=== PATIENT | female | born 1960 | race Caucasian/White ===

== ENCOUNTER 2017-03-31 19:45 | Inpatient (IN) | payer MEDICARE ==
[~2017-03-31] VITALS: Ht 142.2 cm; Wt 54.2 kg
[2017-03-31] MEDS ORDERED: ALBUTEROL/IPRATROPIUM 2.5MG/0.5MG, 3 ML NPPB SCH (20:30)
[2017-03-31] MEDS ORDERED: ASPIRIN 81 MG TABLET CHEW PO ONE (20:30)
[2017-03-31] MEDS ORDERED: SODIUM CHLORIDE FLUSH 10ML SYR IVF ONE (20:30)
[2017-03-31 20:39] LABS: HEMATOCRIT 50.1 % (34.6-47.8); HEMOGLOBIN 16.7 g/dL (11.7-16.4); WHITE BLOOD COUNT 11.4 x10^3/uL (3.4-10)
[2017-03-31 20:58] LABS: BLOOD UREA NITROGEN 14 mg/dL (7-18)
[2017-03-31] MEDS ORDERED: ASPIRIN 81 MG TABLET CHEW ONE (21:02)
[2017-03-31 21:03] LABS: IS PT STATUS REG ER OR PRE ER? YES
[2017-03-31] MEDS ORDERED: CEFTRIAXONE PMX 1GM/50ML 50 ML IVPB ONE (22:00)
[2017-03-31] MEDS ORDERED: ALBUTEROL/IPRATROPIUM 2.5MG/0.5MG, 3 ML NPPB ONE (22:00)
[2017-03-31] MEDS ORDERED: AZITHROMYCIN 500 MG in SODIUM CHLORIDE 0.9% 250 ML IVPB ONE (22:00)
[2017-03-31] MEDS ORDERED: methylPREDNISolone SOD SUCC 125 MG/2 ML IVPush SCH (22:30)
[2017-03-31] MEDS ORDERED: CEFTRIAXONE PMX 1GM/50ML 50 ML ONE (22:43)
[2017-03-31] MEDS ORDERED: BUDE10.2 INH (23:33)
[2017-03-31] MEDS ORDERED: METH500T7 PO (23:33)
[2017-03-31] MEDS ORDERED: MECL-76 PO (23:33)
[2017-03-31] MEDS ORDERED: GABA300C10 PO (23:33)
[2017-03-31] MEDS ORDERED: ESOM20CA PO (23:33)
[2017-03-31] MEDS ORDERED: TIOT18CA INH (23:33)
[2017-03-31] MEDS ORDERED: ALBU0.63 NEB (23:33)
[2017-04-01] MEDS ORDERED: ONDANSETRON 2MG/ML, 2ML IVPush ONE (00:30)
[2017-04-01] MEDS ORDERED: MORPHINE SULFATE 4 MG/ML, 1ML IVPush ONE (00:30)
[2017-04-01] MEDS ORDERED: MORPHINE SULFATE 4 MG/ML, 1ML ONE (00:31)
[2017-04-01] MEDS ORDERED: ACETAMINOPHEN 325 MG TABLET PO PRN (01:00)
[2017-04-01] MEDS ORDERED: ONDANSETRON ODT 4 MG PO PRN (01:00)
[2017-04-01] MEDS ORDERED: DOCUSATE 100 MG CAPSULE PO PRN (01:00)
[2017-04-01] MEDS ORDERED: POLYETHYLENE GLYCOL 17 GM PACKET PO PRN (01:00)
[2017-04-01] MEDS ORDERED: BISACODYL 10 MG SUPP PR PRN (01:00)
[2017-04-01] MEDS: methylPREDNISolone SOD SUCC 125 MG/2 ML IVPush SCH ×4 (03:06→20:35)
[2017-04-01] MEDS: ENOXAPARIN 40 MG/0.4 ML SQ SCH (03:07)
[2017-04-01] MEDS: NICOTINE 7 MG/24 HR PATCH.TD24 TD PRN (03:14)
[2017-04-01 03:23] VITALS: BP 108/73
[2017-04-01 05:42] LABS: HEMATOCRIT 47.1 % (34.6-47.8); HEMOGLOBIN 15.8 g/dL (11.7-16.4); WHITE BLOOD COUNT 10.6 x10^3/uL (3.4-10)
[2017-04-01 05:53] LABS: BLOOD UREA NITROGEN 13 mg/dL (7-18)
[2017-04-01 05:57] LABS: ASPARTATE AMINO TRANSFERASE 16 U/L (15-37)
[2017-04-01 06:03] LABS: IS PT STATUS REG ER OR PRE ER? NO
[2017-04-01] MEDS: ALBUTEROL/IPRATROPIUM 2.5MG/0.5MG, 3 ML NPPB SCH ×4 (06:49→19:38)
[2017-04-01 07:29] VITALS: BP 106/69
[2017-04-01] MEDS: FAMOTIDINE 20 MG TABLET PO SCH ×2 (09:03→20:35)
[2017-04-01] MEDS: GUAIFENESIN 200 MG TABLET PO SCH ×2 (13:38→20:35)
[2017-04-01] MEDS: FLUTICASONE/VILANTEROL 200-25MCG/INH INH SCH (13:38)
[2017-04-01 15:03] VITALS: BP 116/76
[2017-04-01 19:08] VITALS: BP 121/72
[2017-04-01] MEDS: AZITHROMYCIN 500 MG in SODIUM CHLORIDE 0.9% 250 ML IV SCH (20:36)
[2017-04-01] MEDS: CEFTRIAXONE PMX 1GM/50ML 50 ML IV SCH (22:00)
[2017-04-02] MEDS: ENOXAPARIN 40 MG/0.4 ML SQ SCH (01:00)
[2017-04-02 01:09] VITALS: BP 127/76
[2017-04-02] MEDS: methylPREDNISolone SOD SUCC 125 MG/2 ML IVPush SCH ×4 (03:53→19:15)
[2017-04-02 05:34] LABS: HEMATOCRIT 43.6 % (34.6-47.8); HEMOGLOBIN 14.6 g/dL (11.7-16.4); WHITE BLOOD COUNT 15.3 x10^3/uL (3.4-10)
[2017-04-02 05:44] LABS: BLOOD UREA NITROGEN 14 mg/dL (7-18)
[2017-04-02] MEDS: ALBUTEROL/IPRATROPIUM 2.5MG/0.5MG, 3 ML NPPB SCH ×4 (07:06→20:00)
[2017-04-02] MEDS: FAMOTIDINE 20 MG TABLET PO SCH ×2 (09:09→20:54)
[2017-04-02] MEDS: GUAIFENESIN 200 MG TABLET PO SCH ×2 (09:10→20:55)
[2017-04-02] MEDS: FLUTICASONE/VILANTEROL 200-25MCG/INH INH SCH (11:52)
[2017-04-02] MEDS: NICOTINE 7 MG/24 HR PATCH.TD24 TD PRN (13:23)
[2017-04-02 14:27] VITALS: BP 121/71
[2017-04-02 18:41] VITALS: BP 127/72
[2017-04-02] MEDS: AZITHROMYCIN 500 MG in SODIUM CHLORIDE 0.9% 250 ML IV SCH (19:43)
[2017-04-02] MEDS: CEFTRIAXONE PMX 1GM/50ML 50 ML IV SCH (20:55)
[2017-04-03 01:11] VITALS: BP 115/72
[2017-04-03] MEDS: methylPREDNISolone SOD SUCC 125 MG/2 ML IVPush SCH ×4 (01:20→18:36)
[2017-04-03] MEDS: ENOXAPARIN 40 MG/0.4 ML SQ SCH (01:20)
[2017-04-03 03:53] VITALS: BP_SYST 116; BP_SYST 125; BP_DIAS 75; BP_DIAS 77
[2017-04-03] MEDS: ALBUTEROL/IPRATROPIUM 2.5MG/0.5MG, 3 ML NPPB SCH ×4 (07:34→20:30)
[2017-04-03 08:35] VITALS: BP 123/72
[2017-04-03] MEDS: FLUTICASONE/VILANTEROL 200-25MCG/INH INH SCH (09:43)
[2017-04-03] MEDS: GUAIFENESIN 200 MG TABLET PO SCH ×2 (09:43→21:47)
[2017-04-03] MEDS: FAMOTIDINE 20 MG TABLET PO SCH ×2 (09:43→21:47)
[2017-04-03] MEDS: NICOTINE 21 MG/24 HR PATCH.TD24 TD SCH (12:36)
[2017-04-03 12:46] VITALS: BP 122/70
[2017-04-03 19:46] VITALS: BP 116/72
[2017-04-03] MEDS: CEFTRIAXONE PMX 1GM/50ML 50 ML IV SCH (21:47)
[2017-04-03] MEDS: AZITHROMYCIN 500 MG in SODIUM CHLORIDE 0.9% 250 ML IV SCH (23:01)
[2017-04-04 00:56] VITALS: BP 115/72
[2017-04-04] MEDS: methylPREDNISolone SOD SUCC 125 MG/2 ML IVPush SCH ×4 (02:01→21:30)
[2017-04-04] MEDS: ENOXAPARIN 40 MG/0.4 ML SQ SCH (02:02)
[2017-04-04] MEDS: ALBUTEROL/IPRATROPIUM 2.5MG/0.5MG, 3 ML NPPB SCH ×4 (06:50→19:35)
[2017-04-04 08:00] VITALS: BP_SYST 122; BP_SYST 127; BP_SYST 136; BP_DIAS 77; BP_DIAS 79; BP_DIAS 84
[2017-04-04] MEDS: FLUTICASONE/VILANTEROL 200-25MCG/INH INH SCH (08:36)
[2017-04-04] MEDS: FAMOTIDINE 20 MG TABLET PO SCH ×2 (08:45→21:30)
[2017-04-04] MEDS: GUAIFENESIN 200 MG TABLET PO SCH ×2 (08:45→21:30)
[2017-04-04] MEDS: NICOTINE 21 MG/24 HR PATCH.TD24 TD SCH (08:45)
[2017-04-04 12:25] VITALS: BP 127/81
[2017-04-04] MEDS ORDERED: BISACODYL 10 MG SUPP PR PRN (19:30)
[2017-04-04] MEDS ORDERED: ACETAMINOPHEN 325 MG TABLET PO PRN (19:30)
[2017-04-04] MEDS ORDERED: DOCUSATE 100 MG CAPSULE PO PRN (19:30)
[2017-04-04 19:45] VITALS: BP 129/85
[2017-04-04] MEDS: CEFTRIAXONE PMX 1GM/50ML 50 ML IV SCH (21:30)
[2017-04-04] MEDS: AZITHROMYCIN 500 MG in SODIUM CHLORIDE 0.9% 250 ML IV SCH (23:12)
[2017-04-05] MEDS: ENOXAPARIN 40 MG/0.4 ML SQ SCH (02:39)
[2017-04-05] MEDS: methylPREDNISolone SOD SUCC 125 MG/2 ML IVPush SCH ×4 (02:40→21:00)
[2017-04-05 02:51] VITALS: BP 130/86
[2017-04-05] MEDS: ALBUTEROL/IPRATROPIUM 2.5MG/0.5MG, 3 ML NPPB SCH (07:12)
[2017-04-05 07:16] VITALS: BP 112/78
[2017-04-05] MEDS: GUAIFENESIN 200 MG TABLET PO SCH ×2 (08:44→21:00)
[2017-04-05] MEDS: FAMOTIDINE 20 MG TABLET PO SCH ×2 (08:44→21:00)
[2017-04-05] MEDS: NICOTINE 21 MG/24 HR PATCH.TD24 TD SCH (08:45)
[2017-04-05] MEDS: FLUTICASONE/VILANTEROL 200-25MCG/INH INH SCH (09:19)
[2017-04-05 13:55] VITALS: BP 110/70
[2017-04-05 18:46] VITALS: BP 122/74
[2017-04-05] MEDS: CEFTRIAXONE PMX 1GM/50ML 50 ML IV SCH (21:00)
[2017-04-05] MEDS: AZITHROMYCIN 500 MG in SODIUM CHLORIDE 0.9% 250 ML IV SCH (23:09)
[2017-04-06] MEDS: ENOXAPARIN 40 MG/0.4 ML SQ SCH (02:11)
[2017-04-06 02:18] VITALS: BP 119/79
[2017-04-06] MEDS: methylPREDNISolone SOD SUCC 125 MG/2 ML IVPush SCH ×3 (03:18→21:25)
[2017-04-06 08:03] VITALS: BP 126/79
[2017-04-06] MEDS: FAMOTIDINE 20 MG TABLET PO SCH ×2 (10:57→21:25)
[2017-04-06] MEDS: FLUTICASONE/VILANTEROL 200-25MCG/INH INH SCH (10:57)
[2017-04-06] MEDS: NICOTINE 21 MG/24 HR PATCH.TD24 TD SCH (10:58)
[2017-04-06] MEDS: GUAIFENESIN 200 MG TABLET PO SCH ×2 (10:58→21:25)
[2017-04-06 14:00] VITALS: BP 140/93
[2017-04-06 19:37] VITALS: BP 120/81
[2017-04-06] MEDS: CEFTRIAXONE PMX 1GM/50ML 50 ML IV SCH (21:26)
[2017-04-06] MEDS: AZITHROMYCIN 500 MG in SODIUM CHLORIDE 0.9% 250 ML IV SCH (23:38)
[2017-04-07 01:46] VITALS: BP 122/80
[2017-04-07] MEDS: ENOXAPARIN 40 MG/0.4 ML SQ SCH (03:22)
[2017-04-07] MEDS: methylPREDNISolone SOD SUCC 125 MG/2 ML IVPush SCH ×4 (03:22→20:21)
[2017-04-07 08:20] VITALS: BP 140/95
[2017-04-07] MEDS: FLUTICASONE/VILANTEROL 200-25MCG/INH INH SCH (08:56)
[2017-04-07] MEDS: FAMOTIDINE 20 MG TABLET PO SCH ×2 (08:56→20:21)
[2017-04-07] MEDS: NICOTINE 21 MG/24 HR PATCH.TD24 TD SCH (08:57)
[2017-04-07] MEDS: GUAIFENESIN 200 MG TABLET PO SCH ×2 (08:57→20:21)
[2017-04-07 13:41] VITALS: BP 122/82
[2017-04-07 19:17] VITALS: BP 148/88
[2017-04-07] MEDS: CEFTRIAXONE PMX 1GM/50ML 50 ML IV SCH (20:20)
[2017-04-07] MEDS: AZITHROMYCIN 500 MG in SODIUM CHLORIDE 0.9% 250 ML IV SCH (22:45)
[2017-04-08 01:02] VITALS: BP 148/83
[2017-04-08] MEDS: methylPREDNISolone SOD SUCC 125 MG/2 ML IVPush SCH ×2 (02:42→08:23)
[2017-04-08] MEDS: ENOXAPARIN 40 MG/0.4 ML SQ SCH (02:43)
[2017-04-08 07:15] VITALS: BP 133/88
[2017-04-08] MEDS: FAMOTIDINE 20 MG TABLET PO SCH (08:23)
[2017-04-08] MEDS: FLUTICASONE/VILANTEROL 200-25MCG/INH INH SCH (08:23)
[2017-04-08] MEDS: GUAIFENESIN 200 MG TABLET PO SCH (08:23)
[2017-04-08] MEDS: NICOTINE 21 MG/24 HR PATCH.TD24 TD SCH (08:23)
== END 2017-04-08 11:00 | disposition left against medical advice (07) | DRG 871 ==
LOC: ED 21:29 → EDIP 23:27 → 4EST 04-01 02:12
PROVIDERS: ADMIT Internal Medicine; ATTEND Internal Medicine
DX: A41.9 Sepsis, unspecified organism (principal); J96.21 Acute and chronic respiratory failure with hypoxia; J15.9 Unspecified bacterial pneumonia; J44.0 Chronic obstructive pulmonary disease with (acute) lower respiratory infection; J44.1 Chronic obstructive pulmonary disease with (acute) exacerbation; F17.203 Nicotine dependence unspecified, with withdrawal; Z99.81 Dependence on supplemental oxygen; R55 Syncope and collapse; F41.1 Generalized anxiety disorder; I10 Essential (primary) hypertension; Z71.6 Tobacco abuse counseling; Z79.82 Long term (current) use of aspirin
CPT/HCPCS: 36415; 71010; 80048; 80053; 81003; 82040; 82607; 83605; 83735; 83880; 84484; 85025; 87040; 93005; 93306; 93880; 94640; 96365; 96375; J0456; J0696; J1650; J7620; Q0162; J2930; J7050; J7512

== ENCOUNTER → 2018-02-01 | Outpatient (CLI) | payer MEDICARE ==
[~2018-02-01] MED LIST: ALBU0.63 NEB; BUDE10.2 INH; ESOM20CA PO; GABA300C10 PO; MECL-76 PO; METH500T7 PO; TIOT18CA INH
== END ==
LOC: CARD 14:06
PROVIDERS: ATTEND Internal Medicine
DX: Z02.9 Encounter for administrative examinations, unspecified (principal)

== ENCOUNTER → 2018-03-07 | Outpatient (CLI) | payer MEDICARE | END | disposition home or self-care (01) | LOC: CFH 13:08 | PROVIDERS: ATTEND Internal Medicine | DX: J44.9 Chronic obstructive pulmonary disease, unspecified (principal); R91.8 Other nonspecific abnormal finding of lung field; R04.2 Hemoptysis | CPT/HCPCS: 71250 ==

== ENCOUNTER → 2020-03-20 | Outpatient (CLI) | payer MEDICARE | END | disposition home or self-care (01) | LOC: RAD 13:28 | PROVIDERS: ATTEND Family Medicine | DX: J44.9 Chronic obstructive pulmonary disease, unspecified (principal); J18.9 Pneumonia, unspecified organism | CPT/HCPCS: 71046 ==

== ENCOUNTER 2021-01-22 11:57 | Inpatient (IN) | payer MEDICAID, MEDICARE, OTHER ==
[~2021-01-22] VITALS: Ht 149.9 cm; Wt 49.5 kg
[~2021-01-22 11:57] MED LIST changes: +METH-639 PO; -METH500T7 PO
[2021-01-22] MEDS ORDERED: oxygen INH (12:15)
[2021-01-22] MEDS ORDERED: CHOL500015 PO (12:20)
[2021-01-22] MEDS ORDERED: VITA1TAB19 PO (12:20)
[2021-01-22] MEDS ORDERED: DULO30CA2 PO (12:20)
[2021-01-22] MEDS ORDERED: ONDANSETRON 2MG/ML, 2ML ONE (12:23)
[2021-01-22] MEDS ORDERED: SODIUM CHLORIDE FLUSH 10ML SYR IVF ONE (12:30)
[2021-01-22] MEDS ORDERED: SODIUM CHLORIDE 0.9% 1,000 ML IV ONE (12:30)
[2021-01-22] MEDS ORDERED: ONDANSETRON 2MG/ML, 2ML IVPush ONE (12:30)
[2021-01-22 12:53] LABS: BASOPHILS % (AUTO) 1 % (0-1); EOSINOPHILS % (AUTO) 1 % (1-7); LYMPHOCYTES % (AUTO) 23 % (22-44); MEAN CORPUSCULAR HEMOGLOBIN 26.1 pg (27.0-34.8); MEAN PLATELET VOLUME 7.6 fL (7.4-10.4); MONOCYTES % (AUTO) 9 % (2-9); NEUTROPHILS % (AUTO) 67 % (42-75); PLATELET COUNT 419 x10^3/uL (130-400); RED BLOOD COUNT 3.86 x10^6/uL (3.82-5.3); RED CELL DISTRIBUTION WIDTH 15.8 % (9.6-15.2)
[2021-01-22] MEDS ORDERED: ALBUTEROL SULFATE 2.5 MG/3 ML NPPB ONE (12:53)
[2021-01-22 13:07] LABS: ALANINE AMINOTRANSFERASE 24 U/L (12-78); ALBUMIN 3.8 g/dL (3.4-5.0); CALCIUM 8.9 mg/dL (8.5-10.1); CHLORIDE 99 mmol/L (98-107); CREATININE 0.58 mg/dL (0.55-1.02)
[2021-01-22 13:11] LABS: ALKALINE PHOSPHATASE 129 U/L (45-117); BILIRUBIN,TOTAL 0.2 mg/dL (0.2-1.0); TOTAL PROTEIN 7.7 g/dL (6.4-8.2); TROPONIN I < 0.015 ng/mL (0.000-0.045)
[2021-01-22 13:18] LABS: ANION GAP 4 mmol/L (5-15)
[2021-01-22] MEDS ORDERED: ALBUTEROL/IPRATROPIUM 2.5MG/0.5MG, 3 ML ONE (14:40)
[2021-01-22] MEDS ORDERED: ALBUTEROL SULFATE 2.5 MG/3 ML ONE (14:40)
[2021-01-22] MEDS: ALBUTEROL/IPRATROPIUM 2.5MG/0.5MG, 3 ML NPPB SCH (14:47)
[2021-01-22 15:24] VITALS: BP 114/71
[2021-01-22] MEDS ORDERED: DOXYCYCLINE 100MG TABLET PO SCH (15:30)
[2021-01-22] MEDS ORDERED: BISACODYL 10 MG SUPP PR PRN (15:30)
[2021-01-22] MEDS ORDERED: hydrALAzine 20 MG/ML, 1ML IVPush PRN (15:30)
[2021-01-22] MEDS ORDERED: DOCUSATE 100 MG CAPSULE PO PRN (15:30)
[2021-01-22] MEDS ORDERED: morphine SULFATE 10 MG/ML, 1ML IVPush PRN (16:00)
[2021-01-22] MEDS ORDERED: POLYETHYLENE GLYCOL 17 GM PACKET PO PRN (16:00)
[2021-01-22] MEDS ORDERED: OXYcodone IR 5MG TABLET PO PRN (16:00)
[2021-01-22] MEDS: ENOXAPARIN 40 MG/0.4 ML SQ SCH (16:02)
[2021-01-22] MEDS: DOXYCYCLINE 100MG TABLET PO SCH (16:02)
[2021-01-22] MEDS ORDERED: ONDANSETRON ODT 4 MG PO PRN (16:30)
[2021-01-22] MEDS: methylPREDNISolone SOD SUCC 125 MG/2 ML IVPush SCH ×2 (17:16→22:36)
[2021-01-22] MEDS ORDERED: ONDANSETRON 2MG/ML, 2ML IVPush PRN (18:30)
[2021-01-22 20:10] VITALS: BP 109/63
[2021-01-22] MEDS: BUDESONIDE 0.5 MG/2 ML INHA NPPB SCH (20:25)
[2021-01-22] MEDS: ALBUTEROL SULFATE 2.5 MG/3 ML NPPB SCH (20:25)
[2021-01-22] MEDS ORDERED: ALBUTEROL/IPRATROPIUM 2.5MG/0.5MG, 3 ML NPPB SCH (21:00)
[2021-01-23 02:22] VITALS: BP 125/80
[2021-01-23] MEDS: ALBUTEROL SULFATE 2.5 MG/3 ML NPPB SCH ×4 (02:51→20:27)
[2021-01-23] MEDS: methylPREDNISolone SOD SUCC 125 MG/2 ML IVPush SCH ×4 (04:17→23:50)
[2021-01-23] MEDS: DOXYCYCLINE 100MG TABLET PO SCH ×2 (04:17→16:44)
[2021-01-23 05:15] LABS: BASOPHILS % (AUTO) 1 % (0-1); EOSINOPHILS % (AUTO) 0 % (1-7); LYMPHOCYTES % (AUTO) 6 % (22-44); MEAN CORPUSCULAR HEMOGLOBIN 26.4 pg (27.0-34.8); MEAN CORPUSCULAR HGB CONC 32.6 g/dL (32.4-35.8); MONOCYTES % (AUTO) 1 % (2-9); NEUTROPHILS % (AUTO) 93 % (42-75); PLATELET COUNT 356 x10^3/uL (130-400); RED BLOOD COUNT 3.19 x10^6/uL (3.82-5.3); RED CELL DISTRIBUTION WIDTH 15.6 % (9.6-15.2)
[2021-01-23 05:29] LABS: ALBUMIN 3.2 g/dL (3.4-5.0); CHLORIDE 103 mmol/L (98-107)
[2021-01-23] MEDS: ACETAMINOPHEN 325 MG TABLET PO PRN ×2 (05:38→18:33)
[2021-01-23 05:40] LABS: ALANINE AMINOTRANSFERASE 21 U/L (12-78); ALKALINE PHOSPHATASE 105 U/L (45-117); ANION GAP 3 mmol/L (5-15); BILIRUBIN,TOTAL 0.3 mg/dL (0.2-1.0); CALCIUM 8.3 mg/dL (8.5-10.1); CREATININE 0.49 mg/dL (0.55-1.02); TOTAL PROTEIN 6.4 g/dL (6.4-8.2); TRIGLYCERIDES 61 mg/dL (50-200)
[2021-01-23 05:41] LABS: CHOL/HDL RATIO 2.4; CHOLESTEROL, TOTAL 142 mg/dL (140-239); HDL CHOL % 41 % (28-40); HDL CHOLESTEROL (DIRECT) 58 mg/dL (40-60); LDL CHOLESTEROL,CALCULATED 72 mg/dL (54-169); LDL/HDL RATIO 1.2 (0.5-3.0); VLDL CHOLESTEROL 12 mg/dL (0-25)
[2021-01-23] MEDS: DULOXETINE 30 MG CAPSULE.DR PO SCH (09:20)
[2021-01-23] MEDS: BUDESONIDE 0.5 MG/2 ML INHA NPPB SCH ×2 (09:20→20:27)
[2021-01-23] MEDS: PROMETHAZINE 25 MG/ML, 1ML IM PRN ×2 (09:31→16:47)
[2021-01-23] MEDS: VITAMIN B COMPLEX HOMEMEDPO SCH (09:33)
[2021-01-23 09:36] VITALS: BP 112/71
[2021-01-23] MEDS: GUAIFENESIN ER 600 MG TABLET PO SCH ×2 (12:07→20:47)
[2021-01-23 15:59] VITALS: BP 115/64
[2021-01-23] MEDS: ENOXAPARIN 40 MG/0.4 ML SQ SCH (16:44)
[2021-01-23 18:50] VITALS: BP 127/74
[2021-01-24] VITALS: BP 118/69
[2021-01-24] MEDS: ALBUTEROL SULFATE 2.5 MG/3 ML NPPB SCH ×2 (03:00→07:00)
[2021-01-24] MEDS: methylPREDNISolone SOD SUCC 125 MG/2 ML IVPush SCH ×2 (04:55→11:33)
[2021-01-24] MEDS: DOXYCYCLINE 100MG TABLET PO SCH (04:55)
[2021-01-24 06:01] LABS: BASOPHILS % (AUTO) 0 % (0-1); EOSINOPHILS % (AUTO) 0 % (1-7); LYMPHOCYTES % (AUTO) 3 % (22-44); MEAN CORPUSCULAR HEMOGLOBIN 25.5 pg (27.0-34.8); MEAN CORPUSCULAR HGB CONC 31.7 g/dL (32.4-35.8); MEAN PLATELET VOLUME 8.1 fL (7.4-10.4); MONOCYTES % (AUTO) 2 % (2-9); NEUTROPHILS % (AUTO) 95 % (42-75); PLATELET COUNT 394 x10^3/uL (130-400); RED BLOOD COUNT 3.48 x10^6/uL (3.82-5.3); RED CELL DISTRIBUTION WIDTH 16.7 % (9.6-15.2)
[2021-01-24 06:04] LABS: ANION GAP 5 mmol/L (5-15); CALCIUM 8.9 mg/dL (8.5-10.1); CHLORIDE 104 mmol/L (98-107); CREATININE 0.67 mg/dL (0.55-1.02)
[2021-01-24] MEDS: VITAMIN B COMPLEX HOMEMEDPO SCH (06:48)
[2021-01-24] MEDS: BUDESONIDE 0.5 MG/2 ML INHA NPPB SCH (07:00)
[2021-01-24] MEDS: PROMETHAZINE 25 MG/ML, 1ML IM PRN (07:22)
[2021-01-24] MEDS: DULOXETINE 30 MG CAPSULE.DR PO SCH ×2 (07:22→07:26)
[2021-01-24] MEDS: GUAIFENESIN ER 600 MG TABLET PO SCH (07:22)
[2021-01-24 07:37] VITALS: BP 129/80
[2021-01-24] MEDS ORDERED: BUDE10.2 INH (11:58)
[2021-01-24] MEDS ORDERED: GUAI600T31 PO (11:58)
[2021-01-24] MEDS ORDERED: PRED5TAB PO (11:58)
[2021-01-24] MEDS ORDERED: DOXY100T23 PO (12:03)
[2021-01-24] MEDS ORDERED: ALBUTEROL SULFATE 2.5 MG/3 ML NPPB SCH (21:00)
== END 2021-01-24 13:29 | disposition home or self-care (01) | DRG 189 ==
LOC: ED 13:37 → EDIP 13:52 → 3N 15:17
PROVIDERS: ADMIT Family Medicine; ATTEND Family Medicine
DX: J96.21 Acute and chronic respiratory failure with hypoxia (principal); J44.1 Chronic obstructive pulmonary disease with (acute) exacerbation; R64 Cachexia; R13.10 Dysphagia, unspecified; F12.10 Cannabis abuse, uncomplicated; D64.9 Anemia, unspecified; I10 Essential (primary) hypertension; Z87.891 Personal history of nicotine dependence; Z90.711 Acquired absence of uterus with remaining cervical stump; Z99.81 Dependence on supplemental oxygen; Z90.710 Acquired absence of both cervix and uterus; Z68.22 Body mass index [BMI] 22.0-22.9, adult
CPT/HCPCS: 36415; 71045; 74220; 80048; 80053; 80061; 83036; 83735; 84100; 84443; 84484; 85025; 93005; 94640; G0378; J1650; J2405; J2550; J7613; J7626; J2930; J7030; J7512

== ENCOUNTER → 2021-03-05 | Outpatient (CLI) | payer MEDICARE, MEDICAID ==
[~2021-03-05] MED LIST changes: +CHOL500015 PO; +DOXY100T23 PO; +DULO30CA2 PO; +GUAI600T31 PO; +PRED5TAB PO; +VITA1TAB19 PO; +oxygen INH
== END | disposition home or self-care (01) ==
LOC: CFH 13:43
PROVIDERS: ATTEND Family Medicine
DX: N32.89 Other specified disorders of bladder (principal)
CPT/HCPCS: 74176